=== PATIENT | male | born 1945 | race Two or more races ===

== ENCOUNTER 2023-02-14 16:36 | Inpatient (IN) | payer OTHER ==
[~2023-02-14] VITALS: Ht 188 cm; Wt 115.6 kg
[2023-02-14] MEDS ORDERED: LABETALOL HCL 5 MG/ML 4ML SYRINGE IV ONE (16:45)
[2023-02-14 17:07] LABS: Basophils # (auto) 0.1 10 ^3/uL (0-0.2); Basophils % (auto) 1.1 % (0.0-2.0); Eosinophils # (auto) 0.3 10 ^3/uL (0-0.8); Eosinophils % (auto) 5.9 % (0.0-7.0); Hematocrit 42.4 % (41.0-53.0); Hemoglobin 13.9 g/dL (13.5-17.5); Lymphocytes # (auto) 0.8 10 ^3/uL (0.4-5.4); Lymphocytes % (auto) 16.5 % (10.0-50.0); Mean Corpuscular Hemoglobin 31.1 pg (28.0-32.0); Mean Corpuscular Hgb Conc. 32.9 g/dL (32.0-36.0); Mean Corpuscular Volume 94.5 fL (80.0-100.0); Monocytes # (auto) 0.5 10 ^3/uL (0-1.3); Monocytes % (auto) 10.2 % (0.0-12.0); Neutrophils # (auto) 3.1 10 ^3/uL (1.6-8.6); Neutrophils % (auto) 66.3 % (37.0-80.0); Red Blood Cells 4.49 10^6/uL (4.5-5.90); Red Cell Distribution Width 13.9 % (11.8-14.3); White Blood Cell 4.7 10^3/uL (4.4-10.8)
[2023-02-14 17:25] LABS: Albumin 3.4 g/dL (3.4-5.0); BUN/Creatinine Ratio 17.1 (10.0-20.0); Calcium 8.2 mg/dL (8.5-10.1); Magnesium 2.3 mg/dL (1.6-2.6)
[2023-02-14 17:28] LABS: Bilirubin, Total 0.4 mg/dL (0.2-1.0)
[2023-02-14 17:29] VITALS: PULSE 69; RESP 13; O2SAT 90
[2023-02-14] MEDS ORDERED: ALBUTEROL SULF 2.5 MG/0.5ML(0.5%) NEB SOLN NEB ONE (19:45)
[2023-02-14] MEDS ORDERED: IPRATROPIUM BROM 0.5 MG/2.5ML INH SOL NEB ONE (19:45)
[2023-02-14] MEDS ORDERED: methylPREDNISolone SOD SUCC 40 MG/ML VL IV ONE (19:45)
[2023-02-14] MEDS ORDERED: ACETAMINOPHEN 325 MG TAB PO PRN (21:30)
[2023-02-14] MEDS ORDERED: NITROGLYCERIN 0.4 MG SL TAB SL PRN (21:30)
[2023-02-14] MEDS ORDERED: HYDROcodone-ACET 5/325MG TAB PO PRN (21:30)
[2023-02-14] MEDS ORDERED: MORPHINE SULFATE INJ 2 MG/ml SYRG IV PRN (21:30)
[2023-02-14] MEDS ORDERED: ONDANSETRON HCL 4 MG/2 ML VIAL IV PRN (21:30)
[2023-02-14] MEDS: SODIUM CHLOR 0.9% PF (SALINE LOCK) 10ML VIAL/SYR IV SCH (22:00)
[2023-02-14 22:02] LABS: Urine Bacteria NONE SEEN /hpf (None Seen); Urine Blood Negative /uL (Negative); Urine Mucus FEW (None Seen); Urine Specific Gravity 1.022 (1.001-1.035); Urine WBC 10 /hpf (0 - 3)
[2023-02-15] VITALS (10 sets, daily range): BP systolic 133–145; BP diastolic 78; PULSE 60–80; RESP 10–20; TEMP 97.6–97.8; O2SAT 90–96
[2023-02-15] MEDS: ATORVASTATIN 20 MG TAB PO SCH ×2 (00:21→22:07)
[2023-02-15] MEDS: hydrALAZINE HCL 20 MG/ML VL IV PRN ×2 (03:28→11:22)
[2023-02-15] MEDS ORDERED: cloNIDine HCL 0.1 MG TAB PO ONE (04:15)
[2023-02-15] MEDS: ALBUTEROL SULF 2.5 MG/0.5ML(0.5%) NEB SOLN NEB PRN ×3 (04:46→18:11)
[2023-02-15] MEDS: IPRATROPIUM BROM 0.5 MG/2.5ML INH SOL NEB PRN ×3 (04:46→18:11)
[2023-02-15] MEDS: SODIUM CHLOR 0.9% PF (SALINE LOCK) 10ML VIAL/SYR IV SCH ×3 (06:00→22:23)
[2023-02-15 06:28] LABS: Basophils # (auto) 0 10 ^3/uL (0-0.2); Basophils % (auto) 0.1 % (0.0-2.0); Eosinophils # (auto) 0 10 ^3/uL (0-0.8); Eosinophils % (auto) 0.2 % (0.0-7.0); Hemoglobin 14.2 g/dL (13.5-17.5); Lymphocytes # (auto) 0.4 10 ^3/uL (0.4-5.4); Mean Corpuscular Hemoglobin 31.2 pg (28.0-32.0); Mean Corpuscular Volume 94.6 fL (80.0-100.0); Monocytes # (auto) 0.1 10 ^3/uL (0-1.3); Neutrophils % (auto) 92.7 % (37.0-80.0); Nucleated Red Blood Cells % 0.1 %; Red Blood Cells 4.55 10^6/uL (4.5-5.90); Red Cell Distribution Width 14.1 % (11.8-14.3); White Blood Cell 6.5 10^3/uL (4.4-10.8)
[2023-02-15 06:47] LABS: Potassium 3.7 mmol/L (3.5-5.1)
[2023-02-15 06:53] LABS: Albumin 3.5 g/dL (3.4-5.0); BUN/Creatinine Ratio 20.2 (10.0-20.0); Bilirubin, Total 0.4 mg/dL (0.2-1.0); Calcium 8.5 mg/dL (8.5-10.1); Total Protein 6.7 g/dL (6.4-8.2)
[2023-02-15] MEDS ORDERED: LABETALOL HCL 5 MG/ML 4ML SYRINGE IV ONE (07:45)
[2023-02-15] MEDS: LOSARTAN POTASSIUM 50 MG TAB PO SCH (09:22)
[2023-02-15] MEDS: ENOXAPARIN SOD 40 MG/0.4 ML SYRINGE SC SCH (09:23)
[2023-02-15] MEDS ORDERED: NIFEdipine ER 30 MG TAB PO ONE (12:00)
[2023-02-15] MEDS ORDERED: ONDANSETRON HCL 4 MG/2 ML VIAL IV PRN (15:00)
[2023-02-15] MEDS ORDERED: FUROSEMIDE 100 MG/10ML VIAL IV ONE (16:00)
[2023-02-15] MEDS: NIFEdipine ER 30 MG TAB PO SCH ×2 (16:01→22:07)
[2023-02-16] VITALS (11 sets, daily range): BP systolic 102–150; BP diastolic 65–76; PULSE 59–80; RESP 18–20; TEMP 97.6–98.4; O2SAT 90–100
[2023-02-16] MEDS: SODIUM CHLOR 0.9% PF (SALINE LOCK) 10ML VIAL/SYR IV SCH ×3 (06:00→21:55)
[2023-02-16] MEDS: NIFEdipine ER 30 MG TAB PO SCH ×2 (09:54→21:52)
[2023-02-16] MEDS: LOSARTAN POTASSIUM 50 MG TAB PO SCH ×2 (09:55→10:30)
[2023-02-16] MEDS: ENOXAPARIN SOD 40 MG/0.4 ML SYRINGE SC SCH (09:55)
[2023-02-16] MEDS: FUROSEMIDE 100 MG/10ML VIAL IV SCH (09:55)
[2023-02-16] MEDS ORDERED: NIFEdipine ER 30 MG TAB PO SCH (10:00)
[2023-02-16] MEDS: DOCUSATE SOD 100 MG CAP PO PRN (10:09)
[2023-02-16] MEDS ORDERED: DOXA8TAB PO (13:22)
[2023-02-16] MEDS ORDERED: LOSA50TA46 PO (13:28)
[2023-02-16] MEDS ORDERED: FLUT0.05 NAS (13:28)
[2023-02-16] MEDS ORDERED: METO-6 PO (13:28)
[2023-02-16] MEDS ORDERED: ROSU20TA14 PO (13:28)
[2023-02-16] MEDS ORDERED: FURO40TA4 PO (13:28)
[2023-02-16] MEDS ORDERED: TIOT1AER2 IN (13:28)
[2023-02-16] MEDS: ALBUTEROL SULF 2.5 MG/0.5ML(0.5%) NEB SOLN NEB PRN (18:24)
[2023-02-16] MEDS: IPRATROPIUM BROM 0.5 MG/2.5ML INH SOL NEB PRN (18:24)
[2023-02-16] MEDS: ATORVASTATIN 20 MG TAB PO SCH (21:52)
[2023-02-17] VITALS (11 sets, daily range): BP systolic 127–156; BP diastolic 75–86; PULSE 68–94; RESP 16–20; TEMP 97–98.6; O2SAT 85–95
[2023-02-17] MEDS: SODIUM CHLOR 0.9% PF (SALINE LOCK) 10ML VIAL/SYR IV SCH ×3 (05:33→21:32)
[2023-02-17] MEDS: LOSARTAN POTASSIUM 50 MG TAB PO SCH (09:49)
[2023-02-17] MEDS: FUROSEMIDE 100 MG/10ML VIAL IV SCH (09:51)
[2023-02-17] MEDS: NIFEdipine ER 30 MG TAB PO SCH ×2 (09:51→21:32)
[2023-02-17] MEDS: ENOXAPARIN SOD 40 MG/0.4 ML SYRINGE SC SCH (09:55)
[2023-02-17 12:06] LABS: Cholesterol 117 mg/dL (< 200)
[2023-02-17 12:09] LABS: HDL Cholesterol 71 mg/dL (40-59); LDL Cholesterol 35 mg/dL (< 100); Triglycerides 118 mg/dL (< 150)
[2023-02-17] MEDS: methylPREDNISolone SOD SUCC 40 MG/ML VL IV SCH (17:16)
[2023-02-17] MEDS: ATORVASTATIN 20 MG TAB PO SCH (21:32)
[2023-02-17] MEDS: DOCUSATE SOD 100 MG CAP PO PRN (21:41)
[2023-02-18] VITALS (8 sets, daily range): BP systolic 130–150; BP diastolic 82–87; PULSE 62–87; RESP 18–20; TEMP 97.9–98.9; O2SAT 91–93
[2023-02-18] MEDS: SODIUM CHLOR 0.9% PF (SALINE LOCK) 10ML VIAL/SYR IV SCH ×2 (05:43→15:42)
[2023-02-18 06:08] LABS: BUN/Creatinine Ratio 23.5 (10.0-20.0); Calcium 8.4 mg/dL (8.5-10.1); Potassium 3.8 mmol/L (3.5-5.1)
[2023-02-18 06:09] LABS: Basophils # (auto) 0 10 ^3/uL (0-0.2); Basophils % (auto) 0.1 % (0.0-2.0); Eosinophils # (auto) 0 10 ^3/uL (0-0.8); Eosinophils % (auto) 0.3 % (0.0-7.0); Hematocrit 45.5 % (41.0-53.0); Lymphocytes # (auto) 0.6 10 ^3/uL (0.4-5.4); Lymphocytes % (auto) 7.8 % (10.0-50.0); Mean Corpuscular Hemoglobin 31.2 pg (28.0-32.0); Mean Corpuscular Hgb Conc. 32.9 g/dL (32.0-36.0); Mean Corpuscular Volume 95.1 fL (80.0-100.0); Monocytes # (auto) 0.6 10 ^3/uL (0-1.3); Monocytes % (auto) 7.9 % (0.0-12.0); Neutrophils % (auto) 83.9 % (37.0-80.0); Nucleated Red Blood Cells % 0.1 %; Red Blood Cells 4.79 10^6/uL (4.5-5.90); Red Cell Distribution Width 13.9 % (11.8-14.3); White Blood Cell 7.1 10^3/uL (4.4-10.8)
[2023-02-18] MEDS ORDERED: PRED20TA2 PO (09:28)
[2023-02-18] MEDS: methylPREDNISolone SOD SUCC 40 MG/ML VL IV SCH (09:41)
[2023-02-18] MEDS: ENOXAPARIN SOD 40 MG/0.4 ML SYRINGE SC SCH (09:41)
[2023-02-18] MEDS: DOCUSATE SOD 100 MG CAP PO PRN (09:41)
[2023-02-18] MEDS ORDERED: LOS25T PO (09:45)
[2023-02-18] MEDS: NIFEdipine ER 30 MG TAB PO SCH (09:49)
[2023-02-18] MEDS: FUROSEMIDE 100 MG/10ML VIAL IV SCH (09:50)
[2023-02-18] MEDS: LOSARTAN POTASSIUM 50 MG TAB PO SCH (09:50)
[2023-02-18] MEDS ORDERED: AZIT500T66 PO (09:53)
== END 2023-02-18 16:50 | disposition home or self-care (01) | DRG 305 ==
LOC: EDBD 16:36 → ER 16:36 → TELE 21:28 → TELE-CENTR 02-15 21:19
PROVIDERS: ADMIT Internal Medicine Pulmonary Disease; ATTEND Student in an Organized Health Care Education/Training Program
DX: I16.0 Hypertensive urgency (principal); J44.1 Chronic obstructive pulmonary disease with (acute) exacerbation; Z20.822 Contact with and (suspected) exposure to COVID-19; E66.01 Morbid (severe) obesity due to excess calories; E87.70 Fluid overload, unspecified; Z90.5 Acquired absence of kidney; Z87.891 Personal history of nicotine dependence; Z68.32 Body mass index [BMI] 32.0-32.9, adult
CPT/HCPCS: 36415; 36600; 71045; 71275; 80048; 80053; 80061; 81001; 82550; 82805; 83036; 83605; 83735; 83880; 84484; 85025; 85379; 87426; 93005; 93306; 93970; 94640; 96374; 96375; 99291; G0378; J2405; J3490